=== PATIENT | female | born 2000 | race Caucasian/White ===

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

== ENCOUNTER 2021-10-29 19:56 | Emergency (ER) | payer OTHER ==
[2021-10-29 20:14] VITALS: BP 132/90; PULSE 69; TEMP 98.7; BMI 23.2
[2021-10-29] MEDS ORDERED: ACETAMINOPHEN 325 MG TABLET (FP) PO ONE (20:21)
[2021-10-29] MEDS ORDERED: ACETAMINOPHEN 325 MG TABLET (FP) ONE (20:26)
== END 2021-10-30 00:01 | disposition home or self-care (01) ==
LOC: JER 19:56
DX: M54.2 Cervicalgia (principal); V89.2XXA Person injured in unspecified motor-vehicle accident, traffic, initial encounter; Y92.9 Unspecified place or not applicable
CPT/HCPCS: 70450-TC; 72125-TC; 72128-TC; 84703; 99284-25